=== PATIENT | male | born 1940 | race Caucasian/White ===

== ENCOUNTER 2023-06-17 11:41 | Outpatient (CLI) | payer MEDICARE ==
[2023-06-17] MEDS ORDERED: iohexol 350MG/ML 100ml bottle IV ONE (12:06)
[2023-06-17 12:37] LABS: BASOPHILS % (AUTO) 1.1 % (0-1); EOSINOPHILS # (AUTO) 0.1 X10'3 (0-0.9); EOSINOPHILS % (AUTO) 2.6 % (0-6); HEMATOCRIT 44.9 % (42.0-52.0); HEMOGLOBIN 15.1 g/dl (14.0-17.9); LYMPHOCYTES % (AUTO) 27.2 % (21-51); MEAN CORPUSCULAR HEMOGLOBIN 31.6 PG (27.0-31.0); MEAN CORPUSCULAR HGB CONC 33.7 g/dL (33.0-36.5); MEAN CORPUSCULAR VOLUME 93.7 FL (78-98); MEAN PLATELET VOLUME 7.4 FL (7.4-10.4); MONOCYTES # (AUTO) 0.5 X10'3 (0-0.9); NEUTROPHILS # (AUTO) 2.1 X10'3 (1.8-7.7); NEUTROPHILS % (AUTO) 56.1 % (42-75); PLATELET COUNT 172 X10'3 (140-440); RED BLOOD COUNT 4.79 X10'6 (4.70-6.10); WHITE BLOOD COUNT 3.8 X10'3 (4.5-11.0)
[2023-06-17 12:38] LABS: BILIRUBIN,URINE NEGATIVE (Neg); CLARITY,URINE CLEAR (Clear); COLOR,URINE YELLOW (Yellow); GLUCOSE, URINE NEGATIVE (Neg); KETONES,URINE NEGATIVE (Neg); LEUKOCYTE ESTERASE ,URINE NEGATIVE (Neg); NITRITES, URINE NEGATIVE (Neg); OCCULT BLOOD,URINE NEGATIVE (Neg); PH,URINE 7.5 (4.8-8.0); PROTEIN,URINE NEGATIVE (Neg); UROBILINOGEN,URINE 0.2 E.U/dL (0.2-1.0)
[2023-06-17 12:42] LABS: UA COLLECTION TYPE CLN CATCH MIDSTREAM
[2023-06-17 13:02] LABS: HEMOGLOBIN A1C 6.3 % (4.5-6.2)
[2023-06-17 13:12] LABS: ALANINE AMINOTRANSFERASE 13 U/L (12-78); ALBUMIN 3.2 G/DL (3.4-5.0); ALBUMIN/GLOBULIN RATIO 0.8 (1.1-1.5); ALKALINE PHOSPHATASE 74 IU/L (46-116); ANION GAP 8 (8-16); ASPARTATE AMINO TRANSFERASE 18 U/L (10-37); BILIRUBIN,TOTAL 0.4 MG/DL (0.1-1.0); BLOOD UREA NITROGEN 14 MG/DL (7-18); BUN/CREATININE RATIO 15.4 (10.0-20.0); CHLORIDE 106 MMOL/L (99-107); CHOL/HDL RATIO 3.7 (0.00-4.99); CHOLESTEROL 212 MG/DL (0-200); CREATININE 0.91 MG/DL (0.60-1.10); GLUCOSE 116 MG/DL (70-104); HDL CHOLESTEROL 57 MG/DL (35-60); LDL CHOLESTEROL 127 MG/DL (50-100); POTASSIUM 4.2 MMOL/L (3.5-5.1); SODIUM 141 MMOL/L (135-145); THYROID STIMULATING HORMONE 1.61 ulU/ml (0.34-4.50); TOTAL CARBON DIOXIDE 26.9 MMOL/L (24-32); TOTAL PROTEIN 7.2 G/DL (6.4-8.2); TRIGLYCERIDES 86 MG/DL (20-135); eGFR 80 ML/MIN
== END 2023-06-17 23:59 | disposition home or self-care (01) ==
LOC: RAD 11:41
PROVIDERS: ATTEND Family Medicine
DX: J98.11 Atelectasis (principal); R04.2 Hemoptysis; R73.03 Prediabetes; E78.5 Hyperlipidemia, unspecified; J98.4 Other disorders of lung
CPT/HCPCS: 36415; 71275; 80053; 80061; 81003; 82043; 82570; 83036; 84439; 84443; 85025; J3490; Q9967

== ENCOUNTER 2025-03-10 13:52 | Inpatient (IN) | payer MEDICARE, OTHER ==
[~2025-03-10] VITALS: Ht 177.8 cm; Wt 67.0 kg
--- NOTE | 2025-03-10 14:58 | Physician Documentation ---
History of Present Illness ~ Chief Complaint: See Chief Complaint Stated Complaint: LOW BP "OUT OF IT" R/O STROKE Time Seen by MD: 16:34 OK to notify your PCP?: Yes Source: patient, family Mode of Arrival: POV Exam Limitations: no limitations HPI 84-year-old male brought in for weakness, fatigue and lack of appetite for the past 2 days. Family reports that he has been more lethargic than normal. No recent illness, medication changes or pain. Mentions he has had increase urinary frequency. Hx TIA 4 years ago, taking aspirin. 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 He is also being followed by a check services clerk but has had not had a scan for well over three months he says Day of Onset: March 10, 2025 Medication Reconciliation Allergies: Coded Allergies: No Known Allergies (Unverified , 03/10/25) Review of Systems All Other Systems at this time: Reviewed and Negative Physical Exam Vital Signs: RN Vital Signs have been reviewed: Yes, Temperature: 99.3, Source: Temporal, Heart Rate: 89, Respiratory Rate: 16, BP: 131/66, Pulse Oximetry: 94, Weight: 67.000 Oxygen Flow Rate: 0 Pulse Oximetry Reflects: adequate oxygenation Physical Exam General: Alert, no apparent distress. HEENT: PERRL, EOMI, no injection, moist mucous membranes. Neck: Full range of motion. Respiratory: Lungs clear, no respiratory distress. Chest: No accessory muscle use. Cardiovascular: Regular rate and rhythm, no murmurs. Gastrointestinal: Soft, nontender, nondistended. Bowels sounds present. Extremities: Normal range of motion, no deformity. Neurologic: Oriented x4. Psychiatric: Normal mood and affect. Skin: Normal color, warm and dry. BLE edema, 1+ pitting. Progress Results/Orders Results/Orders Orders - [facility] [employer] [facility] Chest (03/10/25 17:21) Completed Orders - [facility] [employer] [facility] Chest (03/10/25 17:21) Vital Signs 03/10/25 03/10/25 03/10/25 14:02 15:25 17:30 Temp 99.3 99.3 Pulse 89 74 Resp 16 14 B/P (MAP) 131/66 108/67 (81) Pulse Ox 94 96 O2 Flow Rate 0 0 Laboratory Tests Test 03/10/25 15:41 03/10/25 17:28 White Blood Count 3.5 L Red Blood Count 4.54 L Hemoglobin 14.0 Hematocrit 39.7 L Mean Corpuscular Volume 87.6 Mean Corpuscular Hemoglobin 30.9 Mean Corpuscular Hemoglobin Concent 35.3 Red Cell Distribution Width 13.5 Platelet Count 127 L Mean Platelet Volume 6.8 L Neutrophils (%) (Auto) 87.8 H Lymphocytes (%) (Auto) 7.0 L Monocytes (%) (Auto) 4.7 Eosinophils (%) (Auto) 0.1 Basophils (%) (Auto) 0.4 Neutrophils # (Auto) 3.1 Lymphocytes # (Auto) 0.2 L Monocytes # (Auto) 0.2 Eosinophils # (Auto) 0.0 Basophils # (Auto) 0.0 CBC Comment Sodium Level 133 L Potassium Level 4.1 Chloride Level 101 Carbon Dioxide Level 26.3 Anion Gap 6 L Blood Urea Nitrogen 15 Creatinine 1.08 Estimated GFR/1.73 m2 65 BUN/Creatinine Ratio 13.9 Glucose Level 144 H Calcium Level 8.3 L Total Bilirubin 0.5 Aspartate Amino Transf (AST/SGOT) 74 H Alanine Aminotransferase (ALT/SGPT) 67 Alkaline Phosphatase 125 H Troponin I High Sensitivity 4 5 Pro-B-Type Natriuretic Peptide 173 Total Protein 6.6 Albumin 2.9 L Globulin 3.7 Albumin/Globulin Ratio 0.8 L Chemistry Comments Troponin I High Sens Percent Delta 25 Troponin I Hi Sens Absolute Change 1 Medical Decision Making Findings Patient's acute onset lethargy general malaise and change in behavior has not been easily explained via CT or his laboratory values however his family and the patient acknowledged that he is not in his baseline. 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 combined with a all the it potential complications Differential Dx:Considerations: Include: anemia, CVA, dehydration, dysrhythmia, electrolyte imbalance, encephalopathy, Guillain-Delaplaine, hypoglycemia, hypotension, hypovolemia, labyrinthitis, Meniere's disease, myasathenia gravis, myocardial infarction, pulmonary embolus, renal failure, respiratory failure, TIA, VBI, vertigo central, vertigo peripheral, vestibular neuronitis, other Departure Disposition: 09 ADMITTED INPATIENT Impression: Primary Impression: Metabolic encephalopathy Additional Impression: Lethargy Referrals: NO PRIMARY CARE PROVIDER (PCP) Additional Comment Medical Screen Exam This patient recieved a medical screening examination. After reviewing the individual's medical complaints with presenting symptoms and performing an appropriate physical examination, it was determined that no emergency medical condition is present. This individual is also not a women having contractions. MAUREEN MCINTOSH HEAVY DUTY TRUCK MECHANIC March 10, 2025 14:58 [facility] [employer] March 10, 2025 17:37
--- NOTE | 2025-03-10 15:18 | ELECTROCARDIOGRAPH REPORT ---
[facility] Test Date: 2025-03-10 Test Time: 15:15:02 Pat Name: LEVI ARAGON Department: [facility] Patient ID: [id number] Room: Gender: M Food Production Machine Operator: : [id number] Requested By: MAUREEN MCINTOSH Order Number: [id number] Reading MD: Dr. Castro Montero Measurements Intervals [place] Rate: 78 P: 81 CT: 142 QRS: 78 QRSD: 96 T: 64 QT: 359 QTc: 409 Interpretive Statements Sinus rhythm RSR' in V1 or V2, probably normal variant Electronically Signed On 03-10-2025 16:08:[address] Castro Montero Please click the below link to view image of tracing.
[2025-03-10 15:50] LABS: BASOPHILS % (AUTO) 0.4 % (0-1); EOSINOPHILS % (AUTO) 0.1 % (0-6); HEMATOCRIT 39.7 % (42.0-52.0); LYMPHOCYTES # (AUTO) 0.2 X10'3 (1.1-4.8); MEAN CORPUSCULAR HEMOGLOBIN 30.9 PG (27.0-31.0); MEAN CORPUSCULAR HGB CONC 35.3 g/dL (33.0-36.5); MEAN CORPUSCULAR VOLUME 87.6 FL (78-98); MEAN PLATELET VOLUME 6.8 FL (7.4-10.4); MONOCYTES # (AUTO) 0.2 X10'3 (0-0.9); MONOCYTES % (AUTO) 4.7 % (2-12); NEUTROPHILS # (AUTO) 3.1 X10'3 (1.8-7.7); NEUTROPHILS % (AUTO) 87.8 % (42-75); PLATELET COUNT 127 X10'3 (140-440); RED BLOOD COUNT 4.54 X10'6 (4.70-6.10); RED CELL DISTRIBUTION WIDTH 13.5 % (11.5-14.5); WHITE BLOOD COUNT 3.5 X10'3 (4.5-11.0)
[2025-03-10 16:05] LABS: ALANINE AMINOTRANSFERASE 67 U/L (12-78); ALBUMIN 2.9 G/DL (3.4-5.0); ALBUMIN/GLOBULIN RATIO 0.8 (1.1-1.5); ALKALINE PHOSPHATASE 125 IU/L (46-116); ANION GAP 6 (8-16); ASPARTATE AMINO TRANSFERASE 74 U/L (10-37); BILIRUBIN,TOTAL 0.5 MG/DL (0.1-1.0); BLOOD UREA NITROGEN 15 MG/DL (7-18); BUN/CREATININE RATIO 13.9 (10.0-20.0); CALCIUM 8.3 MG/DL (8.5-10.1); CHLORIDE 101 MMOL/L (99-107); CREATININE 1.08 MG/DL (0.60-1.10); GLUCOSE 144 MG/DL (70-104); POTASSIUM 4.1 MMOL/L (3.5-5.1); SODIUM 133 MMOL/L (135-145); TOTAL CARBON DIOXIDE 26.3 MMOL/L (24-32); TOTAL PROTEIN 6.6 G/DL (6.4-8.2); eCRCL 50 ML/MIN; eGFR 65 ML/MIN
[2025-03-10 16:12] LABS: PRO BRAIN NATRIURETIC PEPTIDE 173 PG/ML (0-450)
--- NOTE | 2025-03-10 16:13 | RADIOLOGY REPORT ---
CHEST RADIOGRAPH Indication: CP Technique: Single frontal view of the chest was obtained Comparison: None FINDINGS: Lines and Tubes: None Lungs: No focal consolidation. Pleura: No effusion. No pneumothorax. Cardiomediastinal contours: Unremarkable Bones: No acute osseous abnormality. IMPRESSION: No acute cardiopulmonary disease.
[2025-03-10] MEDS ORDERED: mag hydrox/Alum hydrox/simeth 30ml oral suspension PO PRN (18:05)
[2025-03-10] MEDS ORDERED: magnesium sulf-water 2g/50mL 50 ML IV PRN (18:05)
[2025-03-10] MEDS ORDERED: magnesium sulf-water 4G/100mL 100 ML IV PRN (18:05)
[2025-03-10] MEDS ORDERED: ondansetron/PF 4mg/2ml inj IV PRN (18:05)
[2025-03-10] MEDS ORDERED: acetaminophen 325mg tablet PO PRN (18:05)
[2025-03-10] MEDS ORDERED: potassium Cl 20 mEq SR tablet PO PRN ×2 (18:05)
[2025-03-10] MEDS ORDERED: magnesium hydroxide 30ml (MOM) UD suspension PO PRN (18:05)
[2025-03-10] MEDS ORDERED: potassium Cl 40MEQ/1/2NS 520ml 520 ML IV PRN (18:05)
--- NOTE | 2025-03-10 18:24 | RADIOLOGY REPORT ---
EXAM: CT CT HEAD INDICATION: encephalopathy TECHNIQUE: CT of the head without intravenous contrast. Radiation Dose : 1. Head: CT Dose: CTDI volume is 41 mGy. Dose-length product is 8 56 mGy*cm The dose indicators for CT are the volume Computed Tomography (CT) Dose Index (CTDIvol) and the Dose Length Product (DLP), and are measured in units of mGy and mGy-cm, respectively. These indicators are not patient dose, but values generated from the CT scanner acquisition factors. The report includes radiation exposure data for exposures received during this examination. COMPARISON: None FINDINGS: There is no evidence of acute intracranial hemorrhage, extra-axial collection, mass effect, midline s hift, herniation or hydrocephalus. The ventricles, sulci and cisterns are age appropriate. The whitlock-white differentiation is intact. Patchy periventricular and subcortical white matter hypoattenuation is nonspecific but may be related to small vessel ischemic disease. The visualized paranasal sinuses and mastoid air cells are clear. The surrounding soft tissues and osseous structures are unremarkable. IMPRESSION: No acute intracranial abnormality. Radiation optimization: All CT scans at this facility use at least one of these dose optimization cici hniques: automated exposure control mA and/or kV adjustment per patient size (includes targeted exam s where dose is matched to clinical indication) or iterative reconstruction.
[2025-03-10] MEDS: normal saline 1000ml 1,000 ML IV SCH (18:29)
--- NOTE | 2025-03-10 18:29 | RADIOLOGY REPORT ---
CT CT CHEST INDICATION: SOB EXAM DATE: 03/10/2025 05:16 PM COMPARISON: None RADIATION DOSE: CTDIvol: 9 mGy, DLP: 379 mGy*cm PROCEDURE: Helical CT images were obtained of the chest without intravenous contrast. Sagittal and co unruly reconstructions are provided. ADDITIONAL IMAGES / REFORMATS: None All CT scans at this medical facility are performed using dose modulation techniques as appropriate t o a performed exam including the following: Automated exposure control was utilized; adjustment of th e MA and/or KV according to patient size; and use of iterative reconstruction technique. FINDINGS: Bones: Scattered degenerative changes are noted. Visualized Abdomen: Normal. Chest Wall: Normal. Soft tissues: Normal. Mediastinum: Normal. Heart: Coronary artery calcifications are noted. Vessels: Normal. Lymph Nodes: Normal. Pleura: Normal. Airways: Normal. Lung: The biapical pulmonary subpleural scarring appears similar to the prior. A right upper lobe 4.5 mm pulmonary nodule appears stable Compared to the prior. Right lower lobe subpleural scarring also a ppears similar to the prior. Additional scarring in the anterior left upper lobe appears similar. 3mm left upper lobe pulmonary nodule appears stable. Additional smaller 2-3 mm left upper lobe pulmonary nodules at the apex appear stable. If there is any concern or a smoking history a PET CT may be cons idered for further evaluation. Other: None IMPRESSION: No acute intrathoracic abnormality. biapical pulmonary subpleural scarring appears similar to the prior. A right upper lobe 4.5mm pulmona ry nodule appears stable Compared to the prior. Right lower lobe subpleural scarring also appears sim ilar to the prior. Additional scarring in the anterior left upper lobe appears similar. 3mm left uppe r lobe pulmonary nodule appears stable. Additional smaller 2-3 mm left upper lobe pulmonary nodules a t the apex appear stable. If there is any concern or a smoking history a PET CT may be considered for further evaluation.
[2025-03-10] MEDS: K and/or MAG REPLACEMENT MC SCH (18:32)
--- NOTE | 2025-03-10 18:44 | HISTORY AND PHYSICAL ---
History & Physical Providers to CC ~ History of Present Illness Reason for Admit\Complaint: Encephalopathy/ fatigue and malaise/ hypotension History of Present Illness This is a 84-year-old male who was brought in by his family for generalized weakness and fatigue with a poor appetite x2 days the patient has been lethargic and sleeping more he usually is very active and going out mowing the lawn an however has been hot outside and he has not been drinking a lot of fluids. The patient has also felt cold. However he has not had a fever. The patient does have some mild memory issues at baseline since his TIA four years ago these has been slightly progressively worsening however the patient is when asked alert and oriented x4 seems to be rather sharp still cognitively. Labs are reassuring his sodium is a little low 133 this is a low white blood cell count of 3500 with a 87.8% neutrophil count place the patient on Rocephin. Patient has a extensive secondhand smoke exposure as a child is both his parents smoked and worked in pest control and did not wear proper respirator as her other protective gear. 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 Blair loom mechanic regularly. UA is pending. Head CT scan is unremarkable, a CT scan of the chest as various findings however none of these appeared to be acute. Allergies: Coded Allergies: No Known Allergies (Unverified , 03/10/25) Past Medical History Past Medical History Pulmonary embolism, TIA, chronic bronchiolitis, prediabetes Past Surgical History Surgical History Comment Right rotator cuff surgery, inguinal hernia repair at age 32 Family History Family History: FH: Parkinson's disease FATHER FH: prostate cancer FATHER Past Social History Social History Comment Remote history of smoking cigarettes however heavy secondhand smoke from both parents smoking, does not drink alcohol or use illicit drugs. Full code status ROS ROS Except for positives in the HPI the rest of the 14 point review systems is negative Exam Vitals: Vital Signs Date Time Temp Pulse Resp B/P (MAP) Pulse Ox O2 Delivery O2 Flow Rate FiO2 03/10/25 17:30 99.3 74 14 108/67 (81) 96 0 General: Gen. No acute distress alert and oriented 4 Lungs clear to ascultation bilaterally, no wheezes rales or rhonchi appreciated Heart normal sinus rhythm no murmurs rubs or clicks noted Abdomen soft, however mildly distended, nontender bowel sounds are normoactive Lower extremities no clubbing cyanosis, nor edema appreciated bilaterally Diagnostic Data Last Recorded Lab Results: 03/10/25 1541 03/10/25 1541 Advance Care Planning Advanced Care plannin - 30 Minutes Problems: (1) Metabolic encephalopathy Status: Acute Additional Plan # metabolic encephalopathy likely multifactorial including possible dehydration with underlining vascular dementia- IV fluid resuscitation normal saline 100 cc an hour Urinalysis with culture if indicated pending Head CT scan is unremarkable # history of PE-no signs of acute respiratory distress or suggestions the patient has a reoccurrence of PE # TIA-awaiting med rec # chronic bronchiolitis- followed by Dr. Blair loom mechanic in the outpatient setting # DVT prophylaxis- SCDs and SQ Lovenox I spent a total of 17 minutes on reviewing various resuscitative measures/ ACP with the patient at the time of admission. The patient has decided on full code status Date of Service: March 10, 2025 Billing Provider: MCKENNA MONTAÑO DO Common Visit Codes: [id number] INP/OBS CARE (HIGH) Secondary Visit Codes: [id number] CARE PLAN 30 MINUTES MCKENNA MONTAÑO DO March 10, 2025 18:44
[2025-03-10] MEDS: LidoCAINE 2% Topical Jelly 11mL syringe (UROJET) TOP ONE (18:54)
[2025-03-10] MEDS: CefTRIAXone/D5W-Rocephin 1gm 50 ML IV ONE (19:05)
[2025-03-10 19:58] LABS: BILIRUBIN,URINE NEGATIVE (Neg); CLARITY,URINE CLEAR (Clear); COLOR,URINE YELLOW (Yellow); GLUCOSE, URINE NEGATIVE (Neg); KETONES,URINE TRACE mg/dl (Neg); LEUKOCYTE ESTERASE ,URINE NEGATIVE (Neg); NITRITES, URINE NEGATIVE (Neg); OCCULT BLOOD,URINE NEGATIVE (Neg); PROTEIN,URINE NEGATIVE (Neg); UROBILINOGEN,URINE 0.2 E.U/dL (0.2-1.0)
[2025-03-10] MEDS: docusate sod 100mg capsule PO SCH (20:00)
[2025-03-10 20:04] LABS: UA COLLECTION TYPE CLN CATCH MIDSTREAM
[2025-03-10] MEDS: enoxaparin 40mg/0.4ml syringe SQ SCH (20:08)
[2025-03-10 20:50] VITALS: BP 134/71; PULSE 66; RESP 16; TEMP 99.3; O2SAT 93
[2025-03-10 23:00] VITALS: BP 134/71; PULSE 66; RESP 16; TEMP 98; O2SAT 93
[2025-03-11 06:00] VITALS: BP 113/62; PULSE 72; RESP 18; TEMP 99.2; O2SAT 94
[2025-03-11 06:16] LABS: BASOPHILS % (AUTO) 0.7 % (0-1); EOSINOPHILS % (AUTO) 1.1 % (0-6); HEMATOCRIT 37.6 % (42.0-52.0); LYMPHOCYTES # (AUTO) 0.4 X10'3 (1.1-4.8); MEAN CORPUSCULAR HEMOGLOBIN 30.7 PG (27.0-31.0); MEAN CORPUSCULAR HGB CONC 34.5 g/dL (33.0-36.5); MEAN CORPUSCULAR VOLUME 89.1 FL (78-98); MEAN PLATELET VOLUME 7.5 FL (7.4-10.4); MONOCYTES # (AUTO) 0.2 X10'3 (0-0.9); MONOCYTES % (AUTO) 9.5 % (2-12); NEUTROPHILS # (AUTO) 1.7 X10'3 (1.8-7.7); NEUTROPHILS % (AUTO) 70.7 % (42-75); PLATELET COUNT 119 X10'3 (140-440); RED BLOOD COUNT 4.22 X10'6 (4.70-6.10); RED CELL DISTRIBUTION WIDTH 13.3 % (11.5-14.5); WHITE BLOOD COUNT 2.4 X10'3 (4.5-11.0)
[2025-03-11 06:19] LABS: ALANINE AMINOTRANSFERASE 70 U/L (12-78); ALBUMIN 2.5 G/DL (3.4-5.0); ALBUMIN/GLOBULIN RATIO 0.7 (1.1-1.5); ALKALINE PHOSPHATASE 115 IU/L (46-116); ANION GAP 8 (8-16); ASPARTATE AMINO TRANSFERASE 67 U/L (10-37); BILIRUBIN,TOTAL 0.4 MG/DL (0.1-1.0); BLOOD UREA NITROGEN 14 MG/DL (7-18); BUN/CREATININE RATIO 14.4 (10.0-20.0); CALCIUM 7.8 MG/DL (8.5-10.1); CHLORIDE 102 MMOL/L (99-107); CREATININE 0.97 MG/DL (0.60-1.10); GLUCOSE 126 MG/DL (70-104); MAGNESIUM 2.1 MG/DL (1.5-2.4); POTASSIUM 3.8 MMOL/L (3.5-5.1); SODIUM 136 MMOL/L (135-145); TOTAL CARBON DIOXIDE 25.9 MMOL/L (24-32); eCRCL 56 ML/MIN; eGFR 74 ML/MIN
[2025-03-11] MEDS: CefTRIAXone/D5W-Rocephin 1gm 50 ML IV SCH (07:49)
[2025-03-11 07:54] LABS: TOTAL CELLS COUNTED 100
[2025-03-11 07:55] LABS: PLATELET ESTIMATE DECREASED
[2025-03-11 11:00] VITALS: BP 151/64; PULSE 60; RESP 17; TEMP 97; O2SAT 92
[2025-03-11] MEDS ORDERED: ASPI-1265 PO (12:06)
--- NOTE | 2025-03-11 15:42 | PROGRESS NOTE ---
Daily Progress Note Providers to CC ~ Antibiotic Timeout Antibiotic Ordered?: Yes Subjective No new complaints, patient is seen resting comfortably. Noted to have mild cough Objective Vital Signs Date Time Temp Pulse Resp B/P (MAP) Pulse Ox O2 Delivery O2 Flow Rate FiO2 03/11/25 11:00 97.0 60 17 151/64 (93) 92 Room Air 03/11/25 08:00 0.0 21 Result Diagram: 03/11/259 03/11/25458 Alert oriented in NAD HEENT NC, AT , EOMI, Sclera anicteric, conjuctiva pinkish, moist oral mucosa Neck supple, no JVD , Chest: Occasional expiratory rhonchi Heart RRR, No murmur gallop or rub Abdomen soft nontender no organomegaly Extremities No C/C/E Neuro exam nonfocal Other Results Medications reviewed Problem\Assessment\Plan Problems/Diagnosis: (1) Metabolic encephalopathy 84 year old male brought in for generalized weakness, fatigue lethargy and decreased appetite 1.Generalized weakness-PT evaluation and treatment 2.Cough ? Microaspiration , will request speech evaluation 3. Hyponatrmia Mild Resolved 4. History of PE : Patient is not on any medications. 5. Code status Full code. Date of Service: Mar 11, 2025 Billing Provider: BRANNON STILL MD Common Visit Codes: [id number] INP/OBS CARE(HIGH) BRANNON STILL MD Mar 11, 2025 15:42
[2025-03-11 18:30] VITALS: BP 128/57; PULSE 78; RESP 16; TEMP 98.6; O2SAT 92
[2025-03-11 22:00] VITALS: BP 140/71; PULSE 67; RESP 16; TEMP 98.9; O2SAT 96
[2025-03-12 05:56] LABS: BASOPHILS % (AUTO) 1.2 % (0-1); EOSINOPHILS # (AUTO) 0.1 X10'3 (0-0.9); EOSINOPHILS % (AUTO) 2.6 % (0-6); HEMATOCRIT 37.2 % (42.0-52.0); HEMOGLOBIN 12.6 g/dl (14.0-17.9); LYMPHOCYTES # (AUTO) 0.6 X10'3 (1.1-4.8); MEAN CORPUSCULAR HEMOGLOBIN 30.2 PG (27.0-31.0); MEAN CORPUSCULAR HGB CONC 33.8 g/dL (33.0-36.5); MEAN CORPUSCULAR VOLUME 89.5 FL (78-98); MEAN PLATELET VOLUME 7.6 FL (7.4-10.4); MONOCYTES # (AUTO) 0.3 X10'3 (0-0.9); MONOCYTES % (AUTO) 16.9 % (2-12); NEUTROPHILS % (AUTO) 49.3 % (42-75); PLATELET COUNT 105 X10'3 (140-440); RED BLOOD COUNT 4.16 X10'6 (4.70-6.10); RED CELL DISTRIBUTION WIDTH 13.5 % (11.5-14.5)
[2025-03-12 06:00] VITALS: BP 124/60; PULSE 69; RESP 16; TEMP 96.2; O2SAT 95
[2025-03-12 06:31] LABS: ALANINE AMINOTRANSFERASE 99 U/L (12-78); ALBUMIN 2.3 G/DL (3.4-5.0); ALBUMIN/GLOBULIN RATIO 0.6 (1.1-1.5); ALKALINE PHOSPHATASE 143 IU/L (46-116); ANION GAP 7 (8-16); ASPARTATE AMINO TRANSFERASE 72 U/L (10-37); BILIRUBIN,TOTAL 0.5 MG/DL (0.1-1.0); BLOOD UREA NITROGEN 6 MG/DL (7-18); BUN/CREATININE RATIO 6.8 (10.0-20.0); CALCIUM 8.1 MG/DL (8.5-10.1); CHLORIDE 109 MMOL/L (99-107); CREATININE 0.88 MG/DL (0.60-1.10); GLUCOSE 124 MG/DL (70-104); POTASSIUM 3.7 MMOL/L (3.5-5.1); SODIUM 141 MMOL/L (135-145); TOTAL CARBON DIOXIDE 24.8 MMOL/L (24-32); TOTAL PROTEIN 6.1 G/DL (6.4-8.2); eCRCL 61 ML/MIN; eGFR 83 ML/MIN
[2025-03-12 07:56] VITALS: RESP 16
[2025-03-12 09:33] LABS: PLATELET ESTIMATE DECREASED; TOTAL CELLS COUNTED 100
[2025-03-12] MEDS ORDERED: AMOX-419 PO (10:57)
--- NOTE | 2025-03-12 11:04 | DISCHARGE SUMMARY ---
Discharge Summary Providers to CC ~ Discharge Summary Admission Diagnosis: ENCEPHALOPATHY/FATIGUE AND MALAISE Hospital Course DATE OF ADMISSION: 03/10/2025 DATE OF DISCHARGE:03/12/2025 Discharge Diagnosis\Comment: Hyponatremia Generalized weakness Pulmonary nodule Leukopenia Complications: None Condition on DC: Stable New Medications: Amoxicillin/Potassium Clav (Augmentin 500-125 Tablet) 500 Mg-125 Mg Tablet 1 TAB PO Q12H for 7 Days, #14 TAB Continued Medications: Aspirin (Aspirin) 81 Mg Tab.chew 1 TAB PO DAILY, TAB *Problems/Diagnosis: (1) Metabolic encephalopathy Status: Acute BRANNON STILL MD Mar 12, 2025 11:04
== END 2025-03-12 13:30 | disposition home or self-care (01) | DRG 640 ==
LOC: ER 13:53 → ED HOLD 18:05 → EDBEDREQ 20:12 → SUR 3N 20:55
PROVIDERS: ADMIT Family Medicine; ATTEND Family Medicine
DX: E86.0 Dehydration (principal); G93.41 Metabolic encephalopathy; E87.1 Hypo-osmolality and hyponatremia; J44.89 Other specified chronic obstructive pulmonary disease; R91.1 Solitary pulmonary nodule; D72.819 Decreased white blood cell count, unspecified; Z86.711 Personal history of pulmonary embolism; Z80.42 Family history of malignant neoplasm of prostate; Z82.0 Family history of epilepsy and other diseases of the nervous system; Z86.73 Personal history of transient ischemic attack (TIA), and cerebral infarction without residual deficits; Z87.891 Personal history of nicotine dependence
CPT/HCPCS: 36415; 70450; 71045; 71250; 80053; 81003; 83735; 83880; 84484; 85007; 85025; 87081; 92508; 92616; 93005; 96365; 97116; 97161; 97530; 99285; G0378; J0696; J1650; J7030

== ENCOUNTER 2025-04-19 15:23 | Outpatient (CLI) | payer MEDICARE, OTHER ==
[~2025-04-19 15:23] MED LIST: ASPI-1265 PO
[2025-04-19 15:55] LABS: LEUKOCYTE ESTERASE ,URINE NEGATIVE (Neg); NITRITES, URINE NEGATIVE (Neg); OCCULT BLOOD,URINE NEGATIVE (Neg)
[2025-04-19 16:03] LABS: UA COLLECTION TYPE CLN CATCH MIDSTREAM
[2025-04-19 16:10] LABS: CREATININE 1.05 MG/DL (0.60-1.10); TOTAL CARBON DIOXIDE 24.1 MMOL/L (24-32); eGFR 68 ML/MIN
--- NOTE | 2025-04-19 16:14 | RADIOLOGY REPORT ---
DI CHEST,TWO VIEWS CLINICAL HISTORY: PRODUCTIVE COUGH, ASTHMATIC BRONCHITIS W/ACUTE EXACERBATION COMPARISON: CT chest 03/10/2025 TECHNIQUE: Frontal and lateral view of the chest was obtained FINDINGS: Lines and Tubes: None Lungs: No focal consolidation. Hyperinflation of the lungs. Bilateral upper lung zone, Bibasilar and right lateral mid lung zone linear densities. Unchanged multiple small nodular densities over the lef t upper lung zone measuring up to 5 mm. Pleura: No effusion. No pneumothorax. Cardiomediastinal contours: Unremarkable Bones: No acute osseous abnormality. IMPRESSION: Biapical, Bibasilar and right mid lung zone linear atelectasis/ scarring. Otherwise, no evidence for acute cardiopulmonary disease. Unchanged multiple small nodular densities of the left upper lung zone measuring up to 5 mm.
[2025-04-19 16:18] LABS: MEAN PLATELET VOLUME 7.4 FL (7.4-10.4); RED CELL DISTRIBUTION WIDTH 13.6 % (11.5-14.5)
== END 2025-04-19 23:59 | disposition home or self-care (01) ==
LOC: RAD 15:23
PROVIDERS: ATTEND Nurse Practitioner Family
DX: D72.819 Decreased white blood cell count, unspecified (principal); J45.901 Unspecified asthma with (acute) exacerbation; Z87.440 Personal history of urinary (tract) infections; R05.8 Other specified cough
CPT/HCPCS: 36415; 71046; 80053; 81003; 85025